=== PATIENT | female | born 1990 | race American Indian/Alaskan Native ===

== ENCOUNTER 2018-08-08 18:22 | Emergency (ER) | payer BC, OTHER ==
[2018-08-08 19:14] VITALS: BP 157/84
--- NOTE | 2018-08-08 19:15 | Emergency Department Report ---
Blank Doc - Documentation Documentation: pelvic cramping LMP 05/21/18. N/V. This initial assessment diagnostic orders/clinical plan/treatment (s) is/Are subject change based on patient's health status, clinical progression and re- assessment by fellow clinical providers in the ED. Further treatment and work-up at subsequent clinical providers discretion. Patient/guardians urged not to elope from s their condition may be serious if not clinically assessed and managed. Inital order include:
[2018-08-08 20:09] LABS: Bilirubin,Urine NEG (Negative); Blood,Urine NEG (Negative); Color,Urine Yellow (Yellow); Mucus,Urine FEW /HPF; Protein,Urine <15 mg/dL mg/dL (Negative)
--- NOTE | 2018-08-08 21:30 | Emergency Department Report ---
ED Abdominal Pain HPI - General Chief Complaint: Urogenital-Female Stated Complaint: PREGANCY TEST Time Seen by Provider: 08/08/18 19:12 Source: patient Mode of arrival: Ambulatory Limitations: No Limitations - History of Present Illness Initial Comments: Patient is a 28-year-old -[place] Citizen female who presents with left lower quadrant abdominal pain described as cramping last menstrual period was one month ago she's latent , requesting test had a negative test there is no fever or chills no n/v no vaginal bleeding or discharge. MD Complaint: abdominal pain Onset/Timin -: days(s) Location: LLQ Severity: moderate Severity scale (0 -10): 5 Quality: cramping Consistency: intermittent Improves With: nothing Worsens With: nothing - Related Data LMP (females 10-50): 2 months Home Medications Medication Instructions Recorded Confirmed Last Taken KlonoPIN 0.5 mg PO BID 02/16/15 02/16/15 02/15/15 Paxil 20 mg PO DAILY 02/16/15 02/16/15 02/15/15 Previous Rx's Medication Instructions Recorded Last Taken Type HYDROcodone/APAP 10-325 [[place] 1 each PO Q6HR PRN #8 tablet 02/16/15 Unknown Rx 10/325] Methocarbamol [Robaxin TAB] 750 mg PO Q8H PRN #12 tablet 02/16/15 Unknown Rx Allergies Allergy/AdvReac Type Severity Reaction Status Date / Time No Known Allergies Allergy Verified 08/08/18 18:25 ED Review of Systems ROS: Stated complaint: PREGANCY TEST Other details as noted in HPI Constitutional: denies: chills, fever Eyes: denies: eye pain, eye discharge, vision change ENT: denies: ear pain, throat pain Respiratory: denies: cough, shortness of breath, wheezing Cardiovascular: denies: chest pain, palpitations Endocrine: no symptoms reported Gastrointestinal: abdominal pain (LLQ ). denies: nausea, vomiting, diarrhea, constipation, hematemesis, melena, hematochezia Genitourinary: denies: urgency, dysuria, frequency, hematuria, discharge Musculoskeletal: denies: back pain, joint swelling, arthralgia Skin: denies: rash, lesions Neurological: denies: headache, weakness, paresthesias Psychiatric: denies: anxiety, depression Hematological/Lymphatic: denies: easy bleeding, easy bruising ED Past Medical Hx - Past Medical History Hx Headaches / Migraines: Yes Hx Psychiatric Treatment: Yes (anxiety) - Surgical History Past Surgical History?: No - Social History Smoking Status: Never Smoker Substance Use Type: None - Medications Home Medications: Home Medications Medication Instructions Recorded Confirmed Last Taken Type HYDROcodone/APAP 10-325 [[place] 1 each PO Q6HR PRN #8 tablet 02/16/15 Unknown Rx 10/325] KlonoPIN 0.5 mg PO BID 02/16/15 02/16/15 02/15/15 History Methocarbamol [Robaxin TAB] 750 mg PO Q8H PRN #12 tablet 02/16/15 Unknown Rx Paxil 20 mg PO DAILY 02/16/15 02/16/15 02/15/15 History ED Physical Exam - General Limitations: No Limitations General appearance: alert, in no apparent distress - Head Head exam: Present: atraumatic, normocephalic - Eye Eye exam: Present: normal appearance - ENT ENT exam: Present: mucous membranes moist - Neck Neck exam: Present: normal inspection, full ROM ( WOULD FOLLOW). Absent: lymphadenopathy - Respiratory Respiratory exam: Present: normal lung sounds bilaterally (dictated by the right mammogram 1 month DUE TO MAMMOGRAM PROBLEMS NO DYSMOTILITY AND LIVES O). Absent: respiratory distress - Cardiovascular Cardiovascular Exam: Present: regular rate, normal rhythm, normal heart sounds. Absent: systolic murmur, diastolic murmur, rubs, gallop - GI/Abdominal GI/Abdominal exam: Present: soft, tenderness (left lateral were super pubic tenderness to deep palpation), normal bowel sounds. Absent: distended, guarding, rebound, rigid - Rectal Rectal exam: Present: deferred - External exam: Present: other (exam deferred ) - Extremities Exam Extremities exam: Present: normal inspection, full ROM, normal capillary refill. Absent: tenderness (skin:) - Back Exam Back exam: Present: normal inspection, full ROM. Absent: tenderness, CVA tenderness (R), CVA tenderness (L), muscle spasm (.), rash noted - Neurological Exam Neurological exam: Present: alert, oriented X3, CN II-XII intact (positive), normal gait - Psychiatric Psychiatric exam: Present: normal affect, normal mood - Skin Skin exam: Present: warm, dry, intact, normal color. Absent: rash ED Course Vital Signs 08/08/18 19:12 Temperature 98.8 F Pulse Rate 91 H Respiratory 18 Rate Blood Pressure 157/84 O2 Sat by Pulse 97 Oximetry ED Medical Decision Making - Lab Data Labs 08/08/18 08/08/18 19:24 19:39 HCG, Qual Negative Urine Color Yellow Urine Turbidity Clear Urine pH 7.0 Ur Specific [place] 1.017 Urine Protein <15 mg/dl Urine Glucose (UA) Neg Urine Ketones Neg Urine Blood Neg Urine Nitrite Neg Urine Bilirubin Neg Urine Urobilinogen 2.0 Ur Leukocyte Esterase Sm Urine WBC (Auto) 2.0 Urine RBC (Auto) 1.0 U Epithel Cells (Auto) 8.0 Urine Mucus Few - Medical Decision Making HCG: neg, UA: no nitrates, small leuk, normal wbc, normal RBCs , pt denies dysuria frequency or urgerncy no back pain no cva tenderness , no fever no chills, no n/v this not renal stones nor pyelonephritis , plan: nsaids follow up with pcp in 2-3 days pt will return to ed if symptoms worsen, pt verbalized agreement and understanding with discharge plan. Critical care attestation.: If time is entered above; I have spent that time in minutes in the direct care of this critically ill patient, excluding procedure time. ED Disposition Clinical Impression: Abdominal pain Qualifiers: Abdominal location: left lower quadrant Qualified Code(s): R10.32 - Left lower quadrant pain Disposition: -01 TO HOME OR SELFCARE Is pt being admited?: No Does the pt Need Aspirin: No Condition: Stable Instructions: Abdominal Pain (ED) Referrals: VANESSA BRANDT MD [Primary Care Provider] - 3-5 Days Forms: Work/School Release Form(ED) Time of Disposition: 21:41
== END 2018-08-08 21:45 | disposition home or self-care (01) ==
LOC: ED 18:22
DX: R10.32 Left lower quadrant pain (principal); G43.909 Migraine, unspecified, not intractable, without status migrainosus; F41.9 Anxiety disorder, unspecified
CPT/HCPCS: 36415; 81001; 84703; 99283